=== PATIENT | female | born 1975 | race Hispanic/Latino ===

== ENCOUNTER 2017-06-17 09:30 | Outpatient (CLI) | payer OTHER ==
--- NOTE | 2017-06-17 12:22 | MMO ---
BILATERAL SCREENING MAMMOGRAM: Date: 06/17/17 COMPARISON: 12/05/15. HISTORY: 41-year-old female. Routine screening mammography. TECHNIQUE: CC and MLO views of both breasts are submitted for interpretation with implants present and implants displaced. FINDINGS: The breasts are composed of heterogeneously dense fibroglandular tissue, which limits the sensitivit y of mammography in the detection of underlying malignancy. Bilaterally, no suspicious dominant mass, architectural distortion, or suspicious calcification. Spenser ign-appearing calcification left breast. Bilateral implants are intact. IMPRESSION: BIRADS 2: Benign Finding(s) RECOMMENDATION: Annual mammogram. POS: [facility]ERT[facility]
== END 2017-06-17 09:31 | disposition home or self-care (01) ==
LOC: MAMMO 09:30
PROVIDERS: ATTEND Obstetrics & Gynecology
DX: Z12.31 Encounter for screening mammogram for malignant neoplasm of breast (principal)
CPT/HCPCS: 77067; G0202

== ENCOUNTER 2018-07-06 16:16 | Emergency (ER) | payer OTHER ==
[2018-07-06 17:25] LABS: HIV (1/2) Antibody/Antigen Non-Reactive (NonReactive); HIV 1/2 INDEX 0.18 S/CO (<1.00); Hep C IgG Ab Non-Reactive (NonReactive); Hep C Index 0.18 S/CO (0-0.79)
[2018-07-06 18:18] LABS: Hep B Surf AB Reactive (NonReactive)
[2018-07-06 18:19] LABS: HBSAB Concentration 120.52 mIU/mL
== END 2018-07-06 16:57 | disposition home or self-care (01) ==
LOC: ERS 16:16
DX: Z77.21 Contact with and (suspected) exposure to potentially hazardous body fluids (principal)
CPT/HCPCS: 86706; 86803; 87389; 99283

== ENCOUNTER 2018-09-07 09:30 | Outpatient (CLI) | payer OTHER | END 2018-09-07 09:31 | disposition home or self-care (01) | LOC: BICMAMMO 09:30 | PROVIDERS: ATTEND Obstetrics & Gynecology | DX: Z12.31 Encounter for screening mammogram for malignant neoplasm of breast (principal) | CPT/HCPCS: 77063; 77067 ==

== ENCOUNTER 2018-11-20 07:51 | Outpatient (CLI) | payer OTHER ==
--- NOTE | 2018-11-20 11:12 | CT ---
CT ABDOMEN AND PELVIS WITH AND WITHOUT IV CONTRAST: HISTORY: Hematuria, recurrent UTIs. FINDINGS: The lung bases are clear. There are bilateral breast implants. There is a 1.4 cm low-density lesion in the left lobe of the liver without post contrast enhancement, consistent with cyst. The spleen, pancreas, and adrenal glands are normal. No calcified gallstones are seen. No calculi are noted in the kidneys, ureters, or the urinary bladder. No hydroureteral nephrosis is seen on either side. Postcontrast images demonstrate no evidence of renal mass. There is normal con trast excretion into the ureters and the urinary bladder. No free air, free fluid, or lymphadenopathy is seen. There are a few mildly prominent periaortic lym ph nodes measuring up to 5 mm. There is no evidence of aneurysmal dilatation of the abdominal aorta. Uterus and ovaries are present. A normal-appearing appendix is present. No osteoarthritis or oste oblastic lesions are identified. IMPRESSION: 1. No CT evidence of urinary tract calculi/obstruction or renal mass. 2. Left renal cyst. POS: [facility]
[2018-11-20] MEDS ORDERED: ISOVUE-370 76%-LOCM 1 ML ONE (11:57)
== END 2018-11-20 07:52 | disposition home or self-care (01) ==
LOC: BICCT 07:51
PROVIDERS: ATTEND Family Medicine
DX: R31.9 Hematuria, unspecified (principal); N28.1 Cyst of kidney, acquired
CPT/HCPCS: 74178; Q9966

== ENCOUNTER 2019-09-11 09:14 | Outpatient (CLI) | payer OTHER ==
--- NOTE | 2019-09-11 09:49 | MMO ---
Bilateral MAMMO Bilat Screen [facility]. CLINICAL HISTORY: Patient is 43 years old and is seen for screening. The patient has no family history of breast cancer. The patient has no personal history of cancer. The patient has a history of bilateral Implants in Dec, 2016. VIEWS: The views performed were: bilateral craniocaudal with tomosynthesis and bilateral mediolateral oblique with tomosynthesis. FILMS COMPARED: The present examination has been compared to prior imaging studies performed at [facility] on 12/05/2015, 06/17/2017 and 09/07/2018. This study has been interpreted with the assistance of computer-aided detection. MAMMOGRAM FINDINGS: The breasts are heterogeneously dense, which could obscure a lesion on mammography. There are no suspicious masses, suspicious calcifications, or new areas of architectural distortion. Normal implants are present. IMPRESSION: THERE IS NO MAMMOGRAPHIC EVIDENCE OF MALIGNANCY. A ROUTINE FOLLOW-UP MAMMOGRAM IN 1 YEAR IS RECOMMENDED. THE RESULTS OF THIS EXAM WERE SENT TO THE PATIENT. ACR BI-RADS Category 1 - Negative MAMMOGRAPHY NOTE: 1. A negative mammogram report should not delay a biopsy if a dominant of clinically suspicious mass is present. 2. Approximately 10% to 15% of breast cancers are not detected by mammography. 3. Adenosis and dense breasts may obscure an underlying neoplasm. Reported by: MAYO GRAYSON MD Electonically Signed: [id number]
== END 2019-09-11 09:15 | disposition home or self-care (01) ==
LOC: BICMAMMO 09:14
PROVIDERS: ATTEND Obstetrics & Gynecology
DX: Z12.31 Encounter for screening mammogram for malignant neoplasm of breast (principal); Z98.82 Breast implant status
CPT/HCPCS: 77063; 77067

== ENCOUNTER 2020-09-11 12:46 | Outpatient (CLI) | payer OTHER ==
--- NOTE | 2020-09-11 13:10 | MMO ---
Bilateral MAMMO Bilat Screen [facility]. CLINICAL HISTORY: Patient is 44 years old and is seen for screening. The patient has no family history of breast cancer. The patient has no personal history of cancer. The patient has a history of bilateral Implants in Dec, 2016. VIEWS: The views performed were: bilateral craniocaudal; bilateral mediolateral oblique; and bilateral Implant displaced with tomosynthesis. FILMS COMPARED: The present examination has been compared to prior imaging studies performed at [facility] on 12/05/2015, 06/17/2017, 09/07/2018 and 09/11/2019. This study has been interpreted with the assistance of computer-aided detection. MAMMOGRAM FINDINGS: The breasts are heterogeneously dense, which could obscure a lesion on mammography. There are no suspicious masses, suspicious calcifications, or new areas of architectural distortion. IMPRESSION: THERE IS NO MAMMOGRAPHIC EVIDENCE OF MALIGNANCY. A ROUTINE FOLLOW-UP MAMMOGRAM IN 1 YEAR IS RECOMMENDED. THE RESULTS OF THIS EXAM WERE SENT TO THE PATIENT. ACR BI-RADS Category 1 - Negative MAMMOGRAPHY NOTE: 1. A negative mammogram report should not delay a biopsy if a dominant of clinically suspicious mass is present. 2. Approximately 10% to 15% of breast cancers are not detected by mammography. 3. Adenosis and dense breasts may obscure an underlying neoplasm. Reported by: MAYO GRAYSON MD Electonically Signed: [id number]
== END 2020-09-11 12:47 | disposition home or self-care (01) ==
LOC: BICMAMMO 12:46
PROVIDERS: ATTEND Obstetrics & Gynecology
DX: Z12.31 Encounter for screening mammogram for malignant neoplasm of breast (principal); Z98.82 Breast implant status
CPT/HCPCS: 77063; 77067

== ENCOUNTER 2023-05-27 15:25 | Outpatient (CLI) | payer BC | END 2023-05-27 15:26 | disposition home or self-care (01) | LOC: BICMAMMO 15:25 | PROVIDERS: ATTEND Obstetrics & Gynecology | DX: Z12.31 Encounter for screening mammogram for malignant neoplasm of breast (principal); Z98.82 Breast implant status | CPT/HCPCS: 77063; 77067 ==

== ENCOUNTER 2025-04-05 08:08 | Outpatient (CLI) | payer BC | END 2025-04-05 08:09 | disposition home or self-care (01) | LOC: BICMAMMO 08:08 | PROVIDERS: ATTEND Specialist | DX: Z12.31 Encounter for screening mammogram for malignant neoplasm of breast (principal); Z98.82 Breast implant status | CPT/HCPCS: 77063; 77067 ==